=== PATIENT | female | born 1945 | race Caucasian/White ===

== ENCOUNTER 2024-10-15 11:46 | Outpatient (CLI) | payer OTHER, SELFPAY | END 2024-10-15 11:47 | disposition home or self-care (01) | PROVIDERS: PCP Family Medicine; Visit Provider Family Medicine | DX: I10 Essential (primary) hypertension (principal); E87.6 Hypokalemia; M81.0 Age-related osteoporosis without current pathological fracture; Z13.21 Encounter for screening for nutritional disorder; Z13.29 Encounter for screening for other suspected endocrine disorder | CPT/HCPCS: 82607; 84443 ==